=== PATIENT | male | born 1970 | race African-American/Black ===

== ENCOUNTER 2023-06-19 08:36 | Emergency (ER) | payer OTHER, SELFPAY ==
--- NOTE | ~2023-06-19 | XR_ITS ---
Portable chest x-ray Comparison: None Clinical History: Chest pain Findings: Lungs are clear, without focal consolidation or pleural effusion. Cardiomediastinal silho uette is unremarkable, with loop recorder. Bones and soft tissues are unremarkable. Impression: Clear lungs. Reviewed, dictated and finalized at location . Impression: Clear lungs.
[2023-06-19 08:35] VITALS: BP 133/95; PULSE 56; RESP 16; O2SAT 100
--- NOTE | 2023-06-19 08:41 | ECG_ITS ---
Measurements Intervals [place] Rate: 54 P: 59 GA: 213 QRS: 35 QRSD: 94 T: 55 QT: 403 QTc: 383 Interpretive Statements SINUS BRADYCARDIA WITH FIRST DEGREE AV BLOCK BORDERLINE ECG NO PREVIOUS ECG AVAILABLE FOR COMPARISON Electronically Signed On 06-19-2023 8:54:56 CDT by Alfie Amaral D.O.
[2023-06-19 09:01] VITALS: BP 133/95; PULSE 56; RESP 14; O2SAT 100
[2023-06-19 09:03] LABS: Basophils Absolute Auto 0.1 K/mm3 (0.0-0.1); Basophils Percent Auto 1.4 % (0.2-1.2); Eosinophils Absolute Auto 0.3 K/mm3 (0-0.3); Eosinophils Percent Auto 5.8 % (0-4.4); Hematocrit 43.8 % (42.0-52.0); Hemoglobin 13.6 g/dL (14.0-18.0); Immature Granulocyte Absolute 0.01 K/mm3 (0.00-0.031); Immature Granulocyte Percent A 0.2 % (0-0.5); Lymphocytes Absolute Auto 2.54 K/mm3 (0.9-3.2); Lymphocytes Percent Auto 49.3 % (18.3-44.2); Mean Corpuscular HGB Conc 31.1 g/dl (32-36); Mean Corpuscular Hemoglobin 30.7 pg (26-34); Mean Corpuscular Volume 98.9 fl (80-100); Mean Platelet Volume 10.7 fl (7.4-10.4); Monocytes Absolute Auto 0.4 K/mm3 (0.1-0.6); Monocytes Percent Auto 7.8 % (2.6-8.5); Neutrophils Absolute Auto 1.8 K/mm3 (1.3-6.7); Neutrophils Percent Auto 35.5 % (45.5-73.1); Platelet Count Result 219 k/mm3 (150-375); Red Blood Count 4.43 M/mm3 (4.6-6.20); Red Cell Distribution Width 12.4 % (11.5-14.5); White Blood Count 5.2 K/mm3 (4.5-10.0)
[2023-06-19 09:20] LABS: Alanine Aminotransferase 27 U/L (6-50); Albumin Level 4.5 g/dL (3.5-5.1); Alkaline Phosphatase 60 U/L (38-126); Anion Gap 4 mmol/L (8-16); Aspartate Amino Transferase 46 U/L (17-59); Bilirubin,Total 1.3 mg/dL (0.2-1.3); Blood Urea Nitrogen 15 mg/dL (9-20); Calcium 9.2 mg/dL (8.4-10.2); Carbon Dioxide 27 mmol/L (22-30); Chloride 107 mmol/L (98-107); Estimated CRCL calculation 76 ml/min; Estimated Glomerular Filt Rate > 60; Glucose 90 mg/dL (65-110); Potassium 4.7 mmol/L (3.4-5.0); Sodium 138 mmol/L (137-145)
[2023-06-19 09:21] LABS: INR 1.1; Prothrombin Time 14.3 Seconds (11.1-14.7)
[2023-06-19 09:22] LABS: Partial Thromboplastin Time 34.8 Seconds (22.3-36.8)
[2023-06-19 09:24] LABS: Troponin I 0.034 ng/mL (0.000-0.034)
[2023-06-19] MEDS: ACETAMINOPHEN 500 MG TABLET 1000 MG PO (09:26)
[2023-06-19] MEDS: CYCLOBENZAPRINE HCL 10 MG TABLET PO (09:27)
[2023-06-19 09:31] VITALS: BP 159/96; PULSE 57; RESP 13; TEMP 36.6; O2SAT 100
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
[2023-06-19 11:00] VITALS: BP 148/98; PULSE 52; RESP 15; TEMP 36.6
[2023-06-19 11:31] VITALS: BP 130/86; PULSE 52; RESP 13; TEMP 36.7; O2SAT 100
[2023-06-19 12:32] VITALS: BP 142/80; PULSE 53; RESP 14; TEMP 36.6; O2SAT 98
[2023-06-19 12:37] LABS: Troponin I 0.021 ng/mL (0.000-0.034)
== END 2023-06-19 13:15 | disposition home or self-care (01) ==
PROVIDERS: Emergency Provider Preventive Medicine Aerospace Medicine; PCP Family Medicine
DX: R07.89 Other chest pain (principal); M54.6 Pain in thoracic spine; I69.354 Hemiplegia and hemiparesis following cerebral infarction affecting left non-dominant side; Z87.891 Personal history of nicotine dependence; R00.1 Bradycardia, unspecified; I44.0 Atrioventricular block, first degree
CPT/HCPCS: 36415; 71045; 80053; 84484; 85025; 85610; 85730; 93005; 99284; A9270